=== PATIENT | male | born 1970 | race Caucasian/White ===

== ENCOUNTER 2017-04-30 09:19 | Emergency (ER) | payer SELFPAY ==
[2017-04-30 09:23] VITALS: BP 131/81; PULSE 75; RESP 18; TEMP 98.5; O2SAT 98; BMI 30.4
[2017-04-30] MEDS ORDERED: Penicillin G Benzathine 1.2 Mill Unit/2 ml Syr IM ONE ×2 (09:39→09:56)
--- NOTE | 2017-04-30 09:42 | C.PDOC ---
History Of Present Illness SORE THROAT X 4 DAYS. TM 100.7. +GEN ESTRADA. NO OTHER ASSOC SX EXAM NONTOXIC HEENT +TONSILITIS W EXUDATE, SWELLING. UVULA MIDLINE. NO DROOLING, STRIDOR. NO PHOTOPHOBIA NECK SUPPLE NO MENINGISMUS REMAINDER NEG Time Seen by Provider: 04/30/17 09:38 Chief Complaint (Nursing): ENT Problem History Per: Patient History/Exam Limitations: no limitations Onset/Duration Of Symptoms: Days (4) Current Symptoms Are (Timing): Still Present Sick Contacts (Context): None Past Medical History Reviewed: Historical Data, Nursing Documentation, Vital Signs Vital Signs: Last Vital Signs Temp 98.5 F 04/30/17 09:23 Pulse 75 04/30/17 09:23 Resp 18 04/30/17 09:23 BP 131/81 04/30/17 09:23 Pulse Ox 98 04/30/17 09:42 Family History: States: No Known Family Hx - Social History Hx Tobacco Use: No Hx Alcohol Use: Yes Hx Substance Use: No - Immunization History Hx Tetanus Toxoid Vaccination: No Hx Influenza Vaccination: No Hx Pneumococcal Vaccination: No Review Of Systems Except As Marked, All Systems Reviewed And Found Negative. Constitutional: Positive for: Fever (TM 100.7) ENT: Positive for: Throat Pain (Sore throat) Cardiovascular: Negative for: Chest Pain Gastrointestinal: Negative for: Nausea, Vomiting Neurological: Positive for: Headache. Negative for: Weakness, Numbness Physical Exam - Physical Exam Appears: Non-toxic, No Acute Distress Skin: Warm, Dry, No Rash Head: Atraumatic, Normacephalic Eye(s): bilateral: Normal Inspection, PERRL, EOMI Ear(s): Bilateral: Normal Oral Mucosa: Moist, No Drooling, No Trismus Lips: Normal Appearing Throat: Exudate (tonsilitis with exudate and swelling), No Drooling, Other ( uvula midline) Neck: Normal, Normal ROM, Supple, Other ((-) meningismus) Respiratory: Normal Breath Sounds Extremity: Normal ROM, No Swelling Neurological/Psych: Oriented x3, Normal Speech, Normal Motor ED Course And Treatment O2 Sat by Pulse Oximetry: 98 (RA) Pulse Ox Interpretation: Normal Medical Decision Making Medical Decision Making: PLAN: * Bicillin IM * Toradol IM Disposition Counseled Patient/Family Regarding: Diagnosis, Need For Followup, Rx Given - Disposition Referrals: [facility] [Outside] [facility] [Outside] Disposition: HOME/ ROUTINE Disposition Time: 09:41 Condition: IMPROVED Prescriptions: Acetaminophen [Tylenol Extra Strength] 2 tab PO Q6 #30 tablet Dexamethasone [Decadron] 12 mg PO ONCE #3 tab Ibuprofen [Motrin Tab] 800 mg PO Q6 #30 tab Instructions: Pharyngitis (ED) Forms: [facility] (Lao), Work Excuse Print Language: PALAUAN - Clinical Impression Clinical Impression: Pharyngitis - Scribe Statement The provider has reviewed the documentation as recorded by the Barbara Paul Provider Attestation: All medical record entries made by the Barbara were at my direction and personally dictated by me. I have reviewed the chart and agree that the record accurately reflects my personal performance of the history, physical exam, medical decision making, and the department course for this patient. I have also personally directed, reviewed, and agree with the discharge instructions and disposition.
== END 2017-04-30 10:07 | disposition home or self-care (01) ==
LOC: C.ER 09:19
DX: J02.9 Acute pharyngitis, unspecified (principal)
CPT/HCPCS: 96372; 99283; J0561; J1885

== ENCOUNTER 2017-06-22 15:23 | Emergency (ER) | payer SELFPAY ==
[2017-06-22 15:23] VITALS: BMI 30.4
[2017-06-22 15:31] VITALS: BP 129/78; PULSE 77; RESP 16; TEMP 98.8; O2SAT 98
[2017-06-22] MEDS ORDERED: Polymyxin/Trimethoprim Ophth Soln OD STA (16:15)
--- NOTE | 2017-06-22 16:24 | C.PDOC ---
History Of Present Illness 46 y/o M c no PMHx p/w R eye redness with morning crustiness and discharge, irritated. Associated with photophobia. Denies vision change, halos, flashes. Time Seen by Provider: 06/22/17 15:53 Chief Complaint (Nursing): Eye Problem Past Medical History Vital Signs: Last Vital Signs Temp 98.8 F 06/22/17 15:28 Pulse 77 06/22/17 15:28 Resp 16 06/22/17 15:28 BP 129/78 06/22/17 15:28 Pulse Ox 98 06/22/17 15:28 Family History: States: Unknown Family Hx - Social History Hx Tobacco Use: No Hx Alcohol Use: No Hx Substance Use: No - Immunization History Hx Tetanus Toxoid Vaccination: No Hx Influenza Vaccination: No Hx Pneumococcal Vaccination: No Review Of Systems Except As Marked, All Systems Reviewed And Found Negative. Constitutional: Negative for: Fever Eyes: Negative for: Vision Change Physical Exam - Physical Exam Additional Physical Exam Comments: Gen: NAD Head: NC Eyes: R eye injected conjunctiva with thin discharge. +Photophobia. EOMI. ED Course And Treatment O2 Sat by Pulse Oximetry: 98 Medical Decision Making Medical Decision Making: Antibiotic eye drops. Instructed patient to follow up with Opht[facility] immediately for re-evaluation. Return to ED for worsening vision or pain. Disposition - Disposition Referrals: Chandu Clark [Staff Provider] - Disposition: HOME/ ROUTINE Disposition Time: 16:24 Condition: STABLE Prescriptions: Polymyxin/Trimethoprim Sulfate [Polytrim Ophth Soln] 1 drop OD Q3H #1 bottle Instructions: Conjunctivitis ([place]) - Clinical Impression Clinical Impression: Conjunctivitis
== END 2017-06-22 17:02 | disposition home or self-care (01) ==
LOC: C.ER 15:23
DX: H10.9 Unspecified conjunctivitis (principal)